=== PATIENT | male | born 1960 | race Caucasian/White ===

== ENCOUNTER → 2025-10-13 | Outpatient (CLI) | payer MEDICARE, MEDICAID, SELFPAY ==
--- NOTE | 2025-10-13 13:00 | XR_ITS ---
EXAMINATION: Ultrasound aorta TECHNIQUE: Grayscale sonographic images of the abdominal aorta Date and time: October 13, 2025, 1348 hours INDICATIONS: Smoking history 30 years FINDINGS: Transverse dimension proximal aorta 2.5 cm mid aorta 1.8 cm distal aorta 1.5 cm right iliac 0.78 cm left iliac 0.6 cm IMPRESSION: Negative for abdominal aortic aneurysm
--- NOTE | 2025-10-13 13:30 | XR_ITS ---
Examination: Bone densitometry Date and time of exam: October 13, 2025, 1414 hours INDICATIONS: 64-year-old male with diagnosis age-related osteoporosis, diagnosis diabetes Technique: Lumbar spine and hip total bone mineralization values of an calculated. Peak reference and age match control results have been displayed. Findings: Lumbar spine total bone mineralization is 1.117 gm/cm2. This is 0.2 standard deviations above peak reference. This is 1.0 standard deviations above age-matched controls. Hip total bone mineralization is 1.002 gm/cm2 This is 0.2 standard deviations below peak reference. This is 0.3 standard deviations above age-matched controls Impression: There is normal mineralization based on lumbar spine measurements. There is osteopenia based on hip measurements
== END | disposition home or self-care (01) ==
LOC: CDIM 13:29
PROVIDERS: PCP Family Medicine; Referring Provider Family Medicine; Visit Provider Family Medicine
DX: F17.200 Nicotine dependence, unspecified, uncomplicated (principal); M85.88 Other specified disorders of bone density and structure, other site
CPT/HCPCS: 76770; 77080